=== PATIENT | female | born 1995 | race American Indian/Alaskan Native ===

== ENCOUNTER 2017-05-27 08:55 | Observation (INO) | payer BC ==
[2017-05-27 09:16] VITALS: TEMP 98.1; BMI 21.4
[2017-05-27] MEDS ORDERED: Sodium Chloride 0.9% 500 ML IV STA (09:24)
--- NOTE | 2017-05-27 09:24 | ED PDOC ---
Arrival/HPI - General Chief Complaint: Female Genitourinary Time Seen by Provider: 05/27/17 09:11 Historian: Patient - History of Present Illness Narrative History of Present Illness (Text): 05/27/17 09:15 A 21 year old female, with no past medical history, presents to the emergency department complaining of vaginal bleeding (possible miscarriage) since this morning at 04:00. She states she had some "spotting" last night before going to bed as well. Patient reports 9 weeks as per her last visit to her OB/ MAT TESTER, and states she had ultrasound done 2 weeks ago by OB-MAT TESTER. Patient mentions when bleeding began around 04:00, active bleeding increased around 06: 00. Also, she explains that vaginal bleeding is usually gushing but is now currently "clumped." Reports going through "four pads" since this morning. Denies headache. Denies fever. Reports sensation of dizziness when walking. Denies taking any blood thinners. Denies previous pregnanicies. Denies back pain. Denies chest pain or shortness of breath. Patient has no other complaints. LMP February 21 as per patient. OB-MAT TESTER: Dr. Erna Mackey Time/Duration: Other (yesterday around 04:00) Symptom Onset: Sudden Symptom Course: Unchanged Past Medical History - Provider Review Nursing Documentation Reviewed: Yes - Infectious Disease Hx of Infectious Diseases: None - Psychiatric Hx Psychophysiologic Disorder: No Hx Substance Use: No - Anesthesia Hx Anesthesia: No Hx Anesthesia Reactions: No Hx Malignant Hyperthermia: No Family/Social History - Physician Review Nursing Documentation Reviewed: Yes Family/Social History: No Known Family HX Smoking Status: Never Smoked Hx Alcohol Use: No Hx Substance Use: No Allergies/Home Meds Allergies/Adverse Reactions: Allergies No Known Allergies Allergy (Verified 05/27/17 09:15) Home Medications: Home Meds Medication Instructions Recorded Confirmed No Known Home Med 05/27/17 05/27/17 Review of Systems - Review of Systems Constitutional: Fatigue. absent: Fevers Eyes: absent: Vision Changes ENT: absent: Hearing Changes Respiratory: absent: SOB, Cough Cardiovascular: absent: Chest Pain, Edema, UMAÑA Gastrointestinal: Abdominal Pain. absent: Diarrhea, Nausea, Vomiting Genitourinary Female: Vaginal Bleeding. absent: Hematuria, Urine Output Changes , Vaginal Discharge Musculoskeletal: absent: Back Pain Skin: absent: Rash Neurological: Dizziness. absent: Headache, Focal Weakness Endocrine: absent: Polyuria Hemo/Lymphatic: absent: Easy Bleeding Physical Exam - Physical Exam Narrative Physical Exam (Text): 05/27/17 09:20 Head: Atraumatic. Normocephalic. Eyes: PERRL. EOMI. Conjunctivae are not pale. ENT: Mucous membranes are moist and intact. Oropharynx is clear and symmetric. Neck: Supple. Full ROM. No JVD. No lymphadenopathy. Cardiovascular: Regular rate. Regular rhythm. No murmurs, rubs, or gallops. Distal pulses are 2+ and symmetric. Pulmonary/Chest: No evidence of respiratory distress. Clear to auscultation bilaterally. No wheezing, rales or rhonchi. Abdominal: mild suprapubic tenderness. No rebound or guarding. No pulsatile masses. No ruq pain. Pelvic exam: oil well services dispatcher present, there is active bleeding noted, thick clots noted, cervical os appears open, no lesions or lacerations noted. Back: No CVA tenderness. Extremities: No edema. No cyanosis. No clubbing. Full range of motion in all extremities. No calf tenderness. Skin: Skin is warm and dry. No petechiae. No purpura. No diaphroesis. Neurological: Alert, awake, and oriented to person, place, time. Motor and sensory exam intact. Psychiatric: Good eye contact. Normal interaction, affect, and behavior. Vital Signs Reviewed: Yes Vital Signs Temp Pulse Resp BP Pulse Ox 05/27/17 14:00 103 H 18 127/74 100 05/27/17 13:00 100 H 18 100/62 100 05/27/17 11:55 99 H 17 110/63 100 05/27/17 10:00 100 H 18 108/65 99 05/27/17 09:15 98.1 F 105 H 18 113/73 100 05/27/17 09:12 98 F 100 H 20 114/72 99 Temperature: Afebrile Blood Pressure: Normal Pulse: Regular Respiratory Rate: Normal Appearance: Positive for: Well-Appearing Pain Distress: Mild Mental Status: Positive for: Alert and Oriented X 3 Medical Decision Making ED Course and Treatment: 05/27/17 09:23 Impression: 21 year old female with vaginal bleeding (possible miscarriage). Physical exam shows mild suprapubic tenderness; Abd/Pelvic exam shows blood clotting of vaginal wall, active bleeding. Differential Diagnosis included but are not limited to: Vaginal bleeding vs. Miscarriage Plan: -- US Transvaginal -- Labs -- IV Fluids -- Reassess and disposition Patient with serial exams in ED with persistent bleeding, crampy lower abdominal pain. Patient is initially noted to have no hypotension, initial Hgb unremarkable although will recheck Hgb and continue to monitor. I have reviewed ultrasound reading with radiologist, at this time no adnexal or lateral pain. Patient states she saw her YARDING AND FOLDING MACHINE OPERATOR 2 weeks ago and she was noted to have IUP "with no heart beat" at that time. Pelvic exam performed by me with oil well services dispatcher present, persistent bleeding noted with maroon colered clots. Given persistent pain and bleeding, Dr. Blackwood consulted, on-call OB-MAT TESTER, plan to transfer to [facility] for further water meter installer specialty management. 05/27/17 14:14 Re-exam. Patient is comfortable with no dizziness or lightheadeness while on stretcher. Heart rate 96. Blood pressure 127/74 at 1400. Denies severe pain. She feels lightheaded when standing but improved when sits down. Dr. Blackwood updated, he confirms that he will meet the patient at [facility] ER. - Lab Interpretations I have reviewed the lab results: Yes - Medication Orders Current Medication Orders: Discontinued Medications Acetaminophen (Tylenol 325mg Tab) 650 mg PO ONCE STA Stop: 05/27/17 11:39 Last Admin: 05/27/17 12:09 Dose: 650 mg Sodium Chloride (Sodium Chloride 0.9%) 500 mls @ 1,000 mls/hr IV .Q30M STA Stop: 05/27/17 09:53 Last Admin: 05/27/17 09:47 Dose: 1,000 mls/hr Sodium Chloride (Sodium Chloride 0.9%) 1,000 mls @ 1,000 mls/hr IV .Q1H STA Stop: 05/27/17 14:06 Last Admin: 05/27/17 13:10 Dose: 1,000 mls/hr ED OBSERVATION Date of observation admission: 05/27/17 Time of observation admission: 09:00 - Observation admission statement Patient is being placed in observation because:: Patient with vaginal bleeding, . - Goals of Observation Goals of observation are:: Monitoring of bleeding, monitoring of vital signs. - Progress Note Progress Note: 05/27/17 09:00 Patient still actively bleeding, comfortable at this time. 05/27/17 09:55 Hemoglobin drawn at 09:30 and is 12.1. Repeat blood pressure is 108/68. Heart rate currently 100. Patient is still actively bleeding but appears comfortable. Ultrasound pending at this time. 05/27/2017 12:02 Transvaginal Ultrasound FINDINGS: The uterus measures approximately 11.2 x 5.1 x 5.3 cm. Small elliptical shaped fluid collection and/or gestational sac measuring 7.3 mm demonstrated initially at beginning of the procedure however during exam the gestational sac and- fluid disappeared passing clots as per technologist notation. Small amount of free fluid present in the cul sac. The right ovary measures 4.2 x 3.2 x 3.7 cm with a small cyst measuring 3.6 cm in greatest dimension. Right ovary demonstrates arterial flow. Left ovary measures 1.9 x 1.5 x 1.9 cm. IMPRESSION: Questionable spontaneous as described. Small right ovarian cyst. Followup serial serum beta HCG and serial ultrasound to rule out an ectopic which is under likely though not completely excluded. Dictator : Mike Michaels MD I suspect spontaneous miscarriage based on her self reported previous ultrasound results as well as current findings. No adnexal pain noted. Ultrasound findings reviewed with patient and family at bedside. - Scribe Statement The provider has reviewed the documentation as recorded by the Rhys Beyer Provider Scribe Attestation: All medical record entries made by the Scribe were at my direction and personally dictated by me. I have reviewed the chart and agree that the record accurately reflects my personal performance of the history, physical exam, medical decision making, and the department course for this patient. I have also personally directed, reviewed, and agree with the discharge instructions and disposition. Disposition/Present on Arrival - Present on Arrival Any Indicators Present on Arrival: No History of DVT/PE: No History of Uncontrolled Diabetes: No Urinary Catheter: No History of Decub. Ulcer: No History Surgical Site Infection Following: None - Disposition Have Diagnosis and Disposition been Completed?: Yes Diagnosis: Miscarriage, Vaginal bleeding Disposition: Trans to Other Acute Care Hosp Disposition Time: 13:30 Patient Plan: Transfer To ([facility]) Condition: SERIOUS
[2017-05-27 09:42] LABS: BASO # 0.01 K/mm3 (0.0-2.0); BASO % 0.1 % (0.0-3.0); GRAN # 7.16 (1.4-6.5); GRAN % 87.1 % (50.0-68.0); HEMATOCRIT 34.5 % (36.0-48.0); LYMPH # 0.9 (1.2-3.4); LYMPH % 10.5 % (22.0-35.0); MEAN CELL VOLUME 89.6 fl (80.0-105.0); MEAN CORPUSCULAR HEMOGLOBIN 31.4 pg (25.0-35.0); MEAN CORPUSCULAR HGB CONC 35.1 g/dl (31.0-37.0); MEAN PLATELET VOLUME 9.3 fl (7.0-11.0); MONO # 0.2 (0.1-0.6); MONO % 2.3 % (1.0-6.0); RED CELL DISTRIBUTION WIDTH 12.6 % (11.5-14.5); WHITE BLOOD COUNT 8.2 10^3/ul (4.5-11.0)
[2017-05-27 09:51] LABS: INR 0.98 (0.93-1.08); PARTIAL THROMBOPLASTIN TIME 25.9 Seconds (23.7-30.8)
[2017-05-27 09:52] LABS: ALB/GLOB RATIO 1.5 (1.1-1.8); ALKALINE PHOSPHATASE 73 U/L (38-133); ALT/SGPT 26 U/L (7-56); AST/SGOT 27 U/L (15-39); BILIRUBIN,TOTAL 0.4 mg/dL (0.2-1.3); BLOOD UREA NITROGEN 5 mg/dL (7-21); CALCIUM 9.5 mg/dL (8.4-10.5); CARBON DIOXIDE 24 mmol/L (21-33); CHLORIDE 101 mmol/L (98-107); GFR AFRICAN-AMERICAN > 60; GLUCOSE,RANDOM 118 mg/dL (70-110); POTASSIUM 3.9 mmol/L (3.6-5.0); SODIUM 137 mmol/L (132-148); TOTAL PROTEIN 7.8 g/dL (5.8-8.3)
[2017-05-27 11:56] VITALS: O2SAT 100
--- NOTE | 2017-05-27 12:03 | US ---
Pelvic ultrasound dated 05/27/2017. History: Vaginal bleeding. . Transabdominal/transvaginal ultrasound of the pelvis performed. No prior study available for comparison. Findings The uterus measures approximately 11.2 x 5.1 x 5.3 cm. Small elliptical shaped fluid collection and/or gestational sac measuring 7.3 mm demonstrated initially at beginning of the procedure however during exam the gestational sac and- fluid disappeared passing clots as per technologist notation. Small amount of free fluid present in the cul sac. The right ovary measures 4.2 x 3.2 x 3.7 cm with a small cyst measuring 3.6 cm in greatest dimension. Right ovary demonstrates arterial flow. Left ovary measures 1.9 x 1.5 x 1.9 cm. Impression: . Questionable spontaneous as described. Small right ovarian cyst. Followup serial serum beta HCG and serial ultrasound to rule out an ectopic which is under likely though not completely excluded. Note that these findings were discussed with Dr. Martines at approximately 12 p.m. with written down and read back verification
[2017-05-27 13:05] LABS: GRAN # 11.51 (1.4-6.5); GRAN % 92.3 % (50.0-68.0); LYMPH # 0.7 (1.2-3.4); LYMPH % 5.9 % (22.0-35.0); MEAN CELL VOLUME 88.9 fl (80.0-105.0); MEAN CORPUSCULAR HEMOGLOBIN 30.8 pg (25.0-35.0); MEAN CORPUSCULAR HGB CONC 34.6 g/dl (31.0-37.0); MEAN PLATELET VOLUME 9.1 fl (7.0-11.0); MONO # 0.2 (0.1-0.6); MONO % 1.8 % (1.0-6.0); PLATELET COUNT 194 10^3/uL (120.0-450.0); RED CELL DISTRIBUTION WIDTH 12.6 % (11.5-14.5); WHITE BLOOD COUNT 12.5 10^3/ul (4.5-11.0)
[2017-05-27] MEDS ORDERED: Sodium Chloride 0.9% 1,000 ML IV STA (13:07)
[2017-05-27 13:39] VITALS: RESP 18
[2017-05-27 13:42] LABS: NEUTROPHIL 88 % (50.0-70.0); PLATELET ESTIMATE NORMAL (NORMAL)
[2017-05-27 14:06] VITALS: BP 127/74; PULSE 103
--- NOTE | 2017-05-27 15:15 | CP.PCM.CON ---
History of Present Illness - History of Present Illness History of Present Illness: Called to see 21yo female at [facility] ER. She reports having her LMP and 02/21/2017. She was initially evaluated 2-3 weeks ago by an OB which on ultrasound told her that she had a non viable , due to the presence of a gestational sac with a pole without cardiac activity. She was given the option to have a D and C or have to expect for spontaneous passage of the non viable fetus. Pt decides to go for expectant management and saw bleeding this morning which intensified. She was seen in [facility] which upon discussion asked that she be brought to [facility] at [facility] for further evaluation. I sa pt at her bedside well, denied heavy bleeding but some pelvic cramps. Past Patient History - Infectious Disease Hx of Infectious Diseases: None - Past Medical History & Family History Past Medical History?: No - Past Social History Smoking Status: Never Smoked - CARDIAC Hx Cardiac Disorders: No - PULMONARY Hx Respiratory Disorders: No - NEUROLOGICAL Hx Neurological Disorder: No - HEENT Hx HEENT Problems: No - RENAL Hx Chronic Kidney Disease: No - ENDOCRINE/METABOLIC Hx Endocrine Disorders: No - HEMATOLOGICAL/ONCOLOGICAL Hx Blood Disorders: No - INTEGUMENTARY Hx Dermatological Problems: No - PSYCHIATRIC Hx Psychophysiologic Disorder: No Hx Substance Use: No - SURGICAL HISTORY Hx Surgeries: No - ANESTHESIA Hx Anesthesia: No Hx Anesthesia Reactions: No Hx Malignant Hyperthermia: No Meds Allergies/Adverse Reactions: Allergies Allergy/AdvReac Type Severity Reaction Status Date / Time No Known Allergies Allergy Verified 05/27/17 09:15 Physical Exam - Constitutional Appears: Well - Eye Exam Eye Exam: EOMI - Respiratory Exam Respiratory Exam: Clear to Auscultation Bilateral, NORMAL BREATHING PATTERN - Cardiovascular Exam Cardiovascular Exam: REGULAR RHYTHM, RRR - GI/Abdominal Exam GI & Abdominal Exam: Normal Bowel Sounds, Soft - Exam Speculum exam: Vaginal Bleeding (On Speculum exam: Cervix was about 1 cm open with some products of conception. This was gently pulled out with a sponge forceps and the sample sent for histopathology. No bleeding after removal of POC , Internal os of cervix closed.) Bimanual exam: Uterine Enlargement Results - Vital Signs Recent Vital Signs: Last Vital Signs Temp 98.1 F 05/27/17 09:15 Pulse 103 H 05/27/17 14:00 Resp 18 05/27/17 14:00 BP 127/74 05/27/17 14:00 Pulse Ox 100 05/27/17 14:00 - Labs Result Diagrams: 05/27/17 12:55 05/27/17 09:30 Labs: Laboratory Results - last 24 hr 05/27/17 05/27/17 05/27/17 09:30 09:30 09:30 WBC 8.2 RBC 3.85 Hgb 12.1 Hct 34.5 L MCV 89.6 MCH 31.4 MCHC 35.1 RDW 12.6 Plt Count 196 MPV 9.3 Gran % 87.1 H Lymph % (Auto) 10.5 L [place] % (Auto) 2.3 Eos % (Auto) 0.0 L Baso % (Auto) 0.1 Gran # 7.16 H Lymph # 0.9 L [place] # 0.2 Eos # 0.0 Baso # 0.01 Neutrophils % (Manual) Lymphocytes % (Manual) Monocytes % (Manual) Platelet Evaluation PT 10.6 INR 0.98 APTT 25.9 Sodium 137 Potassium 3.9 Chloride 101 Carbon Dioxide 24 Anion Gap 16 BUN 5 L Creatinine 0.5 Est GFR ( Amer) > 60 Est GFR (Non-Af Amer) > 60 Random Glucose 118 H Calcium 9.5 Total Bilirubin 0.4 AST 27 ALT 26 Alkaline Phosphatase 73 Total Protein 7.8 Albumin 4.7 Globulin 3.2 Albumin/Globulin Ratio 1.5 Beta HCG, Quant Blood Type Blood Type Confirm Antibody Screen Crossmatch BBK History Checked 05/27/17 05/27/17 05/27/17 09:30 09:40 10:40 WBC RBC Hgb Hct MCV MCH MCHC RDW Plt Count MPV Gran % Lymph % (Auto) [place] % (Auto) Eos % (Auto) Baso % (Auto) Gran # Lymph # [place] # Eos # Baso # Neutrophils % (Manual) Lymphocytes % (Manual) Monocytes % (Manual) Platelet Evaluation PT INR APTT Sodium Potassium Chloride Carbon Dioxide Anion Gap BUN Creatinine Est GFR ( Amer) Est GFR (Non-Af Amer) Random Glucose Calcium Total Bilirubin AST ALT Alkaline Phosphatase Total Protein Albumin Globulin Albumin/Globulin Ratio Beta HCG, Quant 3650.90 H Blood Type B POSITIVE Blood Type Confirm B POSITIVE Antibody Screen Negative Crossmatch See Detail BBK History Checked No verified bt 05/27/17 12:55 WBC 12.5 H D RBC 3.15 L Hgb 9.7 L D Hct 28.0 L MCV 88.9 MCH 30.8 MCHC 34.6 RDW 12.6 Plt Count 194 MPV 9.1 Gran % 92.3 H Lymph % (Auto) 5.9 L [place] % (Auto) 1.8 Eos % (Auto) 0.0 L Baso % (Auto) 0.0 Gran # 11.51 H Lymph # 0.7 L [place] # 0.2 Eos # 0.0 Baso # 0.00 Neutrophils % (Manual) 88 H Lymphocytes % (Manual) 8 L Monocytes % (Manual) 4 Platelet Evaluation Normal PT INR APTT Sodium Potassium Chloride Carbon Dioxide Anion Gap BUN Creatinine Est GFR ( Amer) Est GFR (Non-Af Amer) Random Glucose Calcium Total Bilirubin AST ALT Alkaline Phosphatase Total Protein Albumin Globulin Albumin/Globulin Ratio Beta HCG, Quant Blood Type Blood Type Confirm Antibody Screen Crossmatch BBK History Checked Assessment & Plan (1) Spontaneous miscarriage Status: Acute - Assessment and Plan (Free Text) Plan: Discharge Patient home. Follow up with Dr Blackwood in 1 week ( [address], [address], [place] [address]. Methergine 0.2mg po Q 4hrs x 2 doses Ferrous Sulfate 325mg po BID X 30 POC for histopathology - Date & Time Date: 05/27/17 Time: 15:50
== END 2017-05-27 14:20 | disposition home or self-care (01) ==
LOC: ED 08:55 → EROBSV 09:00
PROVIDERS: ADMIT Emergency Medicine; ATTEND Emergency Medicine
DX: O03.9 Complete or unspecified spontaneous abortion without complication (principal)
CPT/HCPCS: 76817; 80053; 84702; 85025; 85610; 85730; 86850; 86900; 86920; 99284; G0378; J7040